=== PATIENT | male | born 1955 | race Caucasian/White ===

== ENCOUNTER 2018-10-26 10:13 | Outpatient (CLI) | payer MEDICARE | END 2018-10-26 10:14 | disposition home or self-care (01) | LOC: C.LAB 10:13 | DX: E11.9 Type 2 diabetes mellitus without complications (principal); E78.00 Pure hypercholesterolemia, unspecified; I25.10 Atherosclerotic heart disease of native coronary artery without angina pectoris ==

== ENCOUNTER 2019-01-20 10:29 | Outpatient (CLI) | payer MEDICARE | END 2019-01-20 10:30 | disposition home or self-care (01) | LOC: C.LAB 10:29 | DX: E78.00 Pure hypercholesterolemia, unspecified (principal) ==